=== PATIENT | male | born 1980 | race Hispanic/Latino ===

== ENCOUNTER 2017-02-03 12:27 | Inpatient (IN) | payer MEDICAID, OTHER ==
[2017-02-03 12:39] VITALS: O2SAT 99
--- NOTE | 2017-02-03 12:59 | C.PDOC ---
Time Seen by Provider: 02/03/17 12:50 Chief Complaint (Nursing): Psychiatric Evaluation Past Medical History Vital Signs: Last Vital Signs Temp 98 F 02/03/17 12:32 Pulse 107 H 02/03/17 12:32 Resp 16 02/03/17 12:32 BP 112/76 02/03/17 12:32 Pulse Ox 99 02/03/17 12:32 - Medical History PMH: Bipolar Disorder Surgical History: Appendectomy - Social History Hx Alcohol Use: Yes Hx Substance Use: Yes - Immunization History Hx Tetanus Toxoid Vaccination: No ED Course And Treatment O2 Sat by Pulse Oximetry: 99 Progress - Data Reviewed Data Reviewed: Lab, Old records - Critical Care Citical Care: Excluding Proc Time Critical Care Time: 90 minutes - Continuity of Care Discussed patient case with:: Patient
--- NOTE | 2017-02-03 13:02 | C.PDOC ---
History Of Present Illness 36-year-old male, presents to the emergency department with complaints of SI attempt. Patient was laying on train tracks prior to arrival, he saw the police and flagged them down. Patient is requesting admission for increased depression. States he took street Xanax yesterday. Last Cocaine and EtOH was three days ago. Time Seen by Provider: 02/03/17 12:50 Chief Complaint (Nursing): Psychiatric Evaluation History Per: Patient History/Exam Limitations: no limitations Current Symptoms Are (Timing): Still Present Severity: Moderate Associated Symptoms: Depression, Suicidal Thoughts Past Medical History Reviewed: Historical Data, Nursing Documentation, Vital Signs Vital Signs: Last Vital Signs Temp 98 F 02/03/17 12:32 Pulse 107 H 02/03/17 12:32 Resp 16 02/03/17 12:32 BP 112/76 02/03/17 12:32 Pulse Ox 99 02/03/17 14:36 - Medical History PMH: Bipolar Disorder Surgical History: Appendectomy Family History: States: No Known Family Hx - Social History Hx Alcohol Use: Yes Hx Substance Use: Yes - Immunization History Hx Tetanus Toxoid Vaccination: No Review Of Systems Constitutional: Negative for: Fever Cardiovascular: Negative for: Chest Pain Respiratory: Negative for: Shortness of Breath Psych: Positive for: Depression, Suicidal ideation Physical Exam - Physical Exam Appears: Non-toxic, No Acute Distress, Other (Flat affect. Depressed. No signs of acute intox or withdrawal) Skin: Warm, Dry, No Rash Head: Atraumatic, Normacephalic Eye(s): bilateral: Normal Inspection, PERRL Nose: Normal Oral Mucosa: Moist Lips: Normal Appearing Neck: Normal ROM Respiratory: No Accessory Muscle Use Extremity: Normal ROM Neurological/Psych: Oriented x3, Normal Speech ED Course And Treatment - Laboratory Results Result Diagrams: 02/03/17 13:51 02/03/17 13:51 ECG: Interpreted By Me ECG Rhythm: Sinus Rhythm ECG Interpretation: Normal Rate From EC O2 Sat by Pulse Oximetry: 99 Pulse Ox Interpretation: Normal Progress - Re-Evaluation Re-evaluation Note: 02/03/17 14:36 MED CLEAR FOR CRISIS EVAL. CRISIS NOTIFIED 02/03/17 14:36 EXAM UNCH FROM PRIOR - Data Reviewed Data Reviewed: Lab, Old records - Critical Care Critical Care Time: 90 minutes - Continuity of Care Discussed patient case with:: Patient Discussed pt. case with travel service consultant/specialty: Psychiatry Disposition Counseled Patient/Family Regarding: Studies Performed, Diagnosis - Disposition Disposition: HOSPITALIZED Disposition Time: 15:25 Condition: STABLE - POA Present On Arrival: None - Clinical Impression Clinical Impression: Bipolar disorder, Suicidal ideation - Scribe Statement The provider has reviewed the documentation as recorded by the Scribe (Marlon Diaz) All medical record entries made by the Scribe were at my direction and personally dictated by me. I have reviewed the chart and agree that the record accurately reflects my personal performance of the history, physical exam, medical decision making, and the department course for this patient. I have also personally directed, reviewed, and agree with the discharge instructions and disposition. Decision To Admit - Pt Status Changed To: Hospital Disposition Of: Inpatient - Admit Certification Admit to Inpatient:: After my assessment, the patient will require hospitalization for at least two midnights. This is because of the severity of symptoms shown, intensity of services needed, and/or the medical risk in this patient being treated as an outpatient. - InPatient: Physician Admission Certification: I certify that this patient requires 2 or more midnights of care for the following reason:: SEE NOTE - . Bed Request Type: Psychiatry Admitting Physician: Anup Brooks Patient Diagnosis: Bipolar disorder, Suicidal ideation
[2017-02-03 14:00] LABS: BASO # 0.1 K/uL (0.0-0.2); BASO % 0.6 % (0.0-2.0); EOS % 0.6 % (0.0-4.0); HEMATOCRIT 41.9 % (35.0-51.0); LYMPH # 1.7 K/uL (1.0-4.3); MEAN CELL VOLUME 89.2 fL (80.0-94.0); MEAN CORPUSCULAR HEMOGLOBIN 29.6 pg (27.0-31.0); MEAN CORPUSCULAR HGB CONC 33.1 g/dL (33.0-37.0); MEAN PLATELET VOLUME 8.8 fL (7.2-11.7); MONO # 0.7 K/uL (0.0-0.8); MONO % 8.9 % (0.0-10.0); RBC URINE 1 /hpf (0-3); RED CELL DISTRIBUTION WIDTH 12.6 % (11.5-14.5); URINE BILIRUBIN NEGATIVE (NEGATIVE); URINE BLOOD NEGATIVE (NEGATIVE); URINE COLOR Yellow (YELLOW); URINE GLUCOSE (UA) NORMAL (Normal); URINE KETONE NEGATIVE (NEGATIVE); URINE LEUKOCYTE ESTERASE NEG Leu/uL (Negative); URINE PROTEIN NEGATIVE (NEGATIVE); URINE UROBILINOGEN NORMAL mg/dL (0.2-1.0); WBC URINE 4 /hpf (0-5); WHITE BLOOD COUNT 8.1 K/uL (4.8-10.8)
[2017-02-03 14:05] LABS: CHLORIDE 97 mmol/L (98-107); SODIUM 140 mmol/L (132-148)
[2017-02-03 14:07] LABS: AST/SGOT 17 U/L (17-59); BILIRUBIN,TOTAL 0.8 mg/dL (0.2-1.3); CARBON DIOXIDE 29 mmol/L (22-30); GFR AFRICAN-AMERICAN > 60
[2017-02-03 14:08] LABS: ALB/GLOB RATIO 1.4 (1.0-2.1); ALCOHOL SERUM < 10 mg/dl (0-10); ALKALINE PHOSPHATASE 51 U/L (38-126); ALT/SGPT 25 U/L (21-72); BLOOD UREA NITROGEN 7 mg/dL (9-20); CALCIUM 8.6 mg/dl (8.6-10.4); GLUCOSE,RANDOM 81 mg/dL (75-110); TOTAL PROTEIN 6.7 g/dL (6.3-8.3)
--- NOTE | 2017-02-03 18:03 | PCM.BM ---
<ShylaMagda - Last Filed: 02/03/17 18:03> Treatment Plan Problems - Problems identified on initial assessmt Depression Date Initiated: 02/03/17 Time Initiated: 16:30 Assessment reference: NA Status: Active Suicidal Ideation Date Initiated: 02/03/17 Time Initiated: 16:30 Assessment reference: NA Status: Active Treatment assets and liabiliti Patient Assests: adapts well, cooperative, ADL independent, physically healthy, negotiates basic needs Patient Liabilities: financial problems, relationship conflicts, substance abuse <Anup Brooks - Last Filed: 02/04/17 11:00> - Diagnosis (1) Bipolar disorder Status: Acute Interventions: 02/04/17 11:00 * Assess/adjust medications daily and /or as needed * See patient on an individual basis 7x/week to assess level of manic behaviors and stability * Discuss risks, benefits, side effects and alternatives of medications * (2) Suicidal ideation Status: Acute Interventions: 02/04/17 11:01 * Assess/adjust medications daily and /or as needed * Discuss risks, benefits, side effects and alternatives of medications * See patient on an individual basis 7x/week to assess level of suicidal thoughts * (3) Cocaine use disorder, severe, dependence Status: Acute Interventions: 02/04/17 11:01 * Assess/adjust medications daily and /or as needed * Discuss risks, benefits, side effects and alternatives of medications * See patient on an individual basis 7x/week to assess level of suicidal thoughts * <Britney Balderas - Last Filed: 02/04/17 11:16> Family Contact Family involvement: Family/SO is involved Family contact: Patient agrees to contact Family contact name: Matthias Grey Family contacted how many times per week?: 1 - Goals for Treatment Patient goals for treatment: "I need rehab." Discharge/Continuing Care - Education Needs Education Needs: Patient Medication, Patient Coping Skills - Discharge Discharge Criteria: Tolerates medication w/o severe side effects, No longer exhibiting s/s of withdrawal Discharge to:: Substance Abuse Rehab - Treatment Team Participation Patient/Family/SO Statement: "I need to stay sober." 02/04/17 11:15 Was Patient/Family/SO present at Treatment Team Meeting: Yes
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
--- NOTE | 2017-02-06 00:20 | PCM.PYCHPN ---
Psychiatric Progress Note - Psychiatric Progress Note Patient seen today, length of contact: 18 min Patient Chief Complaint: "A little better" Problems Identified/Issues Discussed: The pt is seen, chart reviewed, case discussed with staff. Support given, CBT and NH used briefly for his cocaine and other drug use No new symptoms reported, improving slowly and needs some more time No active suicide plan or intention today but depressed and pessimistic at times. No AV hallucinations or delusions but he is still odd No SEs from medications, risks discussed. According to a dr who called for his insurance, he can get another Invega shot as he go[place] [facility] After care discussed - wants rehab as he has significant drug history. SW is made aware Medication Change: Yes (meds adjusted) Medical Record Reviewed: Yes Mental Status Examination - Cognitive Function Orientation: Person, Place, Situation, Time Memory: Intact Attention: WNL Concentration: Poor Association: WNL Fund of Knowledge: WNL - Mood Mood: Depressed, Anxious - Affect Affect: Constricted, Depressed - Speech Speech: Appropriate - Formal Thought Process Formal Thought Process: No Impairment - Suicidal Ideation Suicidal Ideation: No - Homicidal Ideation Homicidal Ideation: No Goal/Treatment Plan - Goal/Treatment Plan Need for Continued Stay: Severe depression anxiety, Discharge may exacerbated symptoms, Severe functional impairment Progress Toward Problem(s) and Goals/Treatment Plan: Seroquel for bipolar depression Continue monthly Invega shots, next one is due now per rx records Continue Fellows and encourage adherence - last level was 0.3, low Li level soon As needed meds and vitamins Attend groups and activities [place] for abstinence and CBT for relapse prevention Support and psychoeducation Consider and encourage MAT Use gabapentin for anxiety and alcohol/cocaine wdw Monitor wdw sxs Refer to after care in rehab
--- NOTE | 2017-02-06 11:18 | PCM.PYCHPN ---
Psychiatric Progress Note - Psychiatric Progress Note Patient seen today, length of contact: 17 min Patient Chief Complaint: "OK" Problems Identified/Issues Discussed: The pt is seen, chart reviewed, case discussed with staff. The pt is compliant with medications and reports no side-effects. Symptoms are improving but needs more time to stabilize. After care discussed, support and psychoeducation given. Will likely go to [facility] for rehab - he is very excited about that Denies suicidal ideation, and no halluc/del elicited today He says he did get two shots of Invega and wants to continue in Feb Ok with seroquel and [place]. Level will be checked Perla or Fri am Medication Change: Yes (meds adjusted) Medical Record Reviewed: Yes Mental Status Examination - Cognitive Function Orientation: Person, Place, Situation, Time Memory: Intact Attention: WNL Concentration: Poor Association: WNL Fund of Knowledge: WNL - Mood Mood: Depressed, Anxious - Affect Affect: Constricted, Depressed - Speech Speech: Appropriate - Formal Thought Process Formal Thought Process: No Impairment - Suicidal Ideation Suicidal Ideation: No - Homicidal Ideation Homicidal Ideation: No Goal/Treatment Plan - Goal/Treatment Plan Need for Continued Stay: Severe depression anxiety, Discharge may exacerbated symptoms, Severe functional impairment Progress Toward Problem(s) and Goals/Treatment Plan: Seroquel for bipolar depression Continue [place] Li level soon As needed meds and vitamins Attend groups and activities [place] for abstinence and CBT for relapse prevention Support and psychoeducation Consider and encourage MAT Use gabapentin for anxiety and alcohol/cocaine wdw Monitor wdw sxs Refer to after care in rehab Estimated Date of D/C: 02/08/17
[2017-02-07 07:27] VITALS: RESP 20
--- NOTE | 2017-02-07 10:48 | PCM.PYCHPN ---
Psychiatric Progress Note - Psychiatric Progress Note Patient seen today, length of contact: 17 min Patient Chief Complaint: "I'm fine" Problems Identified/Issues Discussed: The pt is seen, chart reviewed, case discussed with staff. he is improving and is less depressed. He still has an odd smile which may be his baseline. NO psychotic sxs elicited otherwise. Not suicidal and not homicidal No side-effects from meds Seroquel will be upped as planned to 100 mg in am and 200 mg HS [place] level in am Support and psychoed given Medication Change: Yes (meds adjusted) Medical Record Reviewed: Yes Mental Status Examination - Cognitive Function Orientation: Person, Place, Situation, Time Memory: Intact Attention: WNL Concentration: Poor Association: WNL Fund of Knowledge: WNL - Mood Mood: Depressed, Anxious - Affect Affect: Constricted, Depressed - Speech Speech: Appropriate - Formal Thought Process Formal Thought Process: No Impairment - Suicidal Ideation Suicidal Ideation: No - Homicidal Ideation Homicidal Ideation: No Goal/Treatment Plan - Goal/Treatment Plan Need for Continued Stay: Severe depression anxiety, Discharge may exacerbated symptoms, Severe functional impairment Progress Toward Problem(s) and Goals/Treatment Plan: Seroquel for bipolar depression - dose increased Continue [place] Li level in AM As needed meds and vitamins Attend groups and activities [place] for abstinence and CBT for relapse prevention Support and psychoeducation Consider and encourage MAT Use gabapentin for anxiety and alcohol/cocaine wdw Monitor wdw sxs Refer to after care in rehab: [facility] Cochran in [place] Estimated Date of D/C: 02/08/17
[2017-02-07] MEDS ORDERED: Aluminum Hydroxide/Magnesium Hydroxide Susp (30 mL) PO PRN (20:30)
[2017-02-08 08:48] LABS: CHLORIDE 98 mmol/L (98-107); SODIUM 139 mmol/L (132-148)
[2017-02-08 08:49] LABS: POTASSIUM 4.2 mmol/L (3.6-5.2)
[2017-02-08 08:51] LABS: CARBON DIOXIDE 29 mmol/L (22-30); GFR AFRICAN-AMERICAN > 60
[2017-02-08 08:52] LABS: BLOOD UREA NITROGEN 11 mg/dL (9-20); CALCIUM 9.3 mg/dl (8.6-10.4); GLUCOSE,RANDOM 90 mg/dL (75-110)
[2017-02-08 09:27] LABS: THYROID STIMULATING HORMONE 1.41 mIU/L (0.46-4.68)
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
--- NOTE | 2017-02-08 10:15 | CARD ---
APPROVED REPORT EKG Measurement Heart [id number] MA 150P-9 [id number] <Conclusion> Normal sinus rhythm Minimal voltage criteria for LVH, may be normal variant Borderline ECG
[2017-02-08 14:44] VITALS: BP 106/71; PULSE 111; TEMP 97.2
== END 2017-02-08 15:15 | disposition home or self-care (01) | DRG 748 ==
LOC: C.ER 12:27 → C.9E 15:25 → C.5E 16:25
PROVIDERS: ADMIT Psychiatry & Neurology Psychiatry; ATTEND Psychiatry & Neurology Psychiatry
PROC: HZ2ZZZZ Detoxification Services for Substance Abuse Treatment (ICD-10-PCS; principal; 2017-02-03)
PROC: HZ52ZZZ Individual Psychotherapy for Substance Abuse Treatment, Cognitive-Behavioral (ICD-10-PCS; 2017-02-03)
PROC: GZHZZZZ Group Psychotherapy (ICD-10-PCS; 2017-02-03)
PROC: HZ59ZZZ Individual Psychotherapy for Substance Abuse Treatment, Supportive (ICD-10-PCS; 2017-02-03)
PROC: HZ56ZZZ Individual Psychotherapy for Substance Abuse Treatment, Psychoeducation (ICD-10-PCS; 2017-02-03)
DX: F14.23 Cocaine dependence with withdrawal (principal); R45.851 Suicidal ideations; K76.89 Other specified diseases of liver; F31.4 Bipolar disorder, current episode depressed, severe, without psychotic features; F10.230 Alcohol dependence with withdrawal, uncomplicated; F17.210 Nicotine dependence, cigarettes, uncomplicated; Y90.0 Blood alcohol level of less than 20 mg/100 ml; F41.9 Anxiety disorder, unspecified; Z59.0 Homelessness